=== PATIENT | male | born 1985 | race Caucasian/White ===

== ENCOUNTER 2018-08-14 16:29 | Emergency (ER) | payer MEDICAID ==
[~2018-08-14] VITALS: Ht 177.8 cm; Wt 79.0 kg
[2018-08-14] MEDS ORDERED: PIPERACILLIN/TAZ 3.375G PREMIX 50 ML IV ONE (21:15)
[2018-08-14] MEDS ORDERED: KETOROLAC 30MG/ML VIAL IV ONE (21:15)
[2018-08-14] MEDS ORDERED: SODIUM CHLORIDE 0.9% 1000ML BAG (SEPSIS BOLUS) IV ONE (21:15)
[2018-08-14] MEDS ORDERED: VANCOMYCIN 1 G PREMIX 200 ML IV ONE (21:15)
[2018-08-14 22:21] LABS: BASOPHILS % 0.4 % (0.0-2.0); EOSINOPHILS % 0.2 % (0.0-5.0); HEMATOCRIT. 43.2 % (42.0-52.0); HEMOGLOBIN. 14.3 g/dL (14.0-18.0); LYMPHOCYTES % 10.9 % (20.0-50.0); MEAN CORPUSCULAR HEMOGLOBIN 30.9 pg (28.0-32.0); MEAN CORPUSCULAR VOLUME 93.1 fL (80.0-94.0); MEAN PLATELET VOLUME 7.7 fl (7.4-10.4); MONOCYTES % 5.6 % (2.0-8.0); NEUTROPHILS % 82.9 % (40.0-76.0); PLATELET 489 x1000/uL (130-400); RED BLOOD CELL COUNT 4.64 mill/uL (4.7-6.1); RED CELL DISTRIBUTION WIDTH 13.8 % (11.6-14.6)
[2018-08-14 22:23] LABS: CHLORIDE 105 mEq/L (98-107)
[2018-08-14 22:27] LABS: ETHANOL BLOOD < 10 mg/dL
[2018-08-14 23:23] LABS: CLARITY URINE CLEAR (CLEAR); COLOR URINE YELLOW (YELLOW); KETONES URINE TRACE (NEGATIVE); LEUKOCYTE ESTERASE URINE NEGATIVE (NEGATIVE); NITRITE URINE NEGATIVE (NEGATIVE); OCCULT BLOOD URINE NEGATIVE (NEGATIVE); PROTEIN URINE NEGATIVE (NEGATIVE); SPECIFIC GRAVITY URINE 1.025 (1.005-1.030)
[2018-08-15 00:06] LABS: *AMPHETAMINES SCREEN URINE PRESUMTIVE POSITIVE (NEGATIVE); *BARBITURATES SCREEN URINE NEGATIVE (NEGATIVE); *BENZODIAZEPINES SCREEN URINE NEGATIVE (NEGATIVE); *COCAINE SCREEN URINE NEGATIVE (NEGATIVE); METHADONE URINE SCREEN NEGATIVE (NEGATIVE); OPIATES URINE SCREEN NEGATIVE (NEGATIVE)
[2018-08-15 00:07] LABS: CANNABINOID URINE SCREEN PRESUMTIVE POSITIVE (NEGATIVE); PHENCYCLIDINE URINE SCREEN NEGATIVE (NEGATIVE)
[2018-08-15] MEDS ORDERED: ACETAMINOPHEN 325MG TABLET PO PRN (09:00)
[2018-08-15] MEDS ORDERED: ONDANSETRON HCL 4MG/2ML INJ IV PRN (09:00)
[2018-08-15] MEDS ORDERED: PIPERACILLIN/TAZ 3.375G PREMIX 50 ML IV SCH (09:00)
[2018-08-15 09:13] VITALS: BP 128/85
== END 2018-08-15 10:55 | disposition left against medical advice (07) ==
LOC: ER 18:38 → EDBEDREQ 08-15 01:41 → EDBEDREQTM 08-15 01:41 → EDBEDREQSVC 08-15 01:41 → CANBEDREQ 08-15 09:48 → ER 08-15 10:55
DX: A41.9 Sepsis, unspecified organism (principal); L03.116 Cellulitis of left lower limb; S82.202S Unspecified fracture of shaft of left tibia, sequela; X58.XXXS Exposure to other specified factors, sequela; I10 Essential (primary) hypertension; F12.90 Cannabis use, unspecified, uncomplicated
CPT/HCPCS: 36415; 71045; 73610; 80053; 80305; 81003; 83605; 84145; 84484; 85025; 85610; 87040; 87086; 93005; 96365; 96367; 96375; 99291; J1885; J2543; J3370; J7030; Z7610